=== PATIENT | female | born 1965 | race Caucasian/White ===

== ENCOUNTER → 2024-11-22 | Outpatient (CLI) | payer OTHER, SELFPAY ==
--- NOTE | 2024-11-22 | XR_ITS ---
Examination: Bilateral wrists 6 views Technique: AP oblique lateral each wrist total 6 views Date and time: November 22 thousand 25, 0733 hrs. Indications: Bilateral wrist pain 3 years, history carpal tunnel syndrome. Findings: Bilateral mild osteoarthritis first carpometacarpal joints No wrist fractures or dislocations No avascular necrosis Soft tissue vascular calcification Moderate osteopenia Impression: Bilateral mild osteoarthritis first carpometacarpal joints No fractures No erosive arthritis
--- NOTE | 2024-11-22 | XR_ITS ---
Examination: Bilateral hands, 6 views. Technique: AP, Oblique, Lateral each hand total 6 views Date and time of exam: November 22 thousand 25, 0729 hrs. Indications: Bilateral wrist and hand pain 3 years, history carpal tunnel Findings: Significant osteoarthritis proximal and distal interphalangeal joints left fifth digit Milder osteoarthritis distal interphalangeal joints second through fourth digits and interphalangeal joint first digit Significant osteoarthritis right proximal interphalangeal joints third fourth and fifth digits as well as interphalangeal joint right first digit No fractures No erosive arthritis Impression: Significant osteoarthritis as above
== END | disposition home or self-care (01) ==
LOC: CDIM 06:43
PROVIDERS: PCP Physician Assistant; Referring Provider Nurse Practitioner Family; Visit Provider Nurse Practitioner Family
DX: M19.042 Primary osteoarthritis, left hand (principal); M19.041 Primary osteoarthritis, right hand; M18.0 Bilateral primary osteoarthritis of first carpometacarpal joints
CPT/HCPCS: 73110; 73130

== ENCOUNTER 2025-01-31 17:31 | Emergency (ER) | payer OTHER, SELFPAY ==
[2025-01-31 17:31] VITALS: BP 160/92; PULSE 98; RESP 18; TEMP 37.1; O2SAT 100
[2025-01-31 17:43] VITALS: PULSE 80; O2SAT 100; BMI 28.3
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
[2025-01-31] MEDS: ACETAMINOPHEN 500 MG TABLET 1000 MG PO (19:03)
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
[2025-01-31 20:41] VITALS: BP 155/90; PULSE 95; RESP 18; TEMP 37; O2SAT 100
== END 2025-01-31 20:43 | disposition home or self-care (01) ==
PROVIDERS: Emergency Provider Emergency Medicine; PCP Physician Assistant
DX: S16.1XXA Strain of muscle, fascia and tendon at neck level, initial encounter (principal); S09.90XA Unspecified injury of head, initial encounter; R07.89 Other chest pain; V89.2XXA Person injured in unspecified motor-vehicle accident, traffic, initial encounter
CPT/HCPCS: 70450; 71101; 72125; 99283; A9270